=== PATIENT | male | born 1960 | race Caucasian/White ===

== ENCOUNTER 2016-10-01 08:38 | Inpatient (IN) | payer OTHER ==
--- NOTE | 2016-09-30 13:46 | CONS ---
DATE OF ADMISSION: 10/01/2016 DATE OF CONSULTATION: 09/29/2016 TYPE OF CONSULTATION: Preoperative medical consultation. Scheduled date of surgery 10/01/2016 by Lindsay Hernández. Dear Dr. Hernández: Thank you very much for allowing me to participate in the care of Mr. Cifuentes. He is an 55-year-old male with osteoarthritis who is being brought in electively for left total hip ar throplasty. PAST MEDICAL HISTORY: 1. Migraine syndrome. 2. Prostate cancer. 3. Allergic rhinitis. 4. Usual childhood diseases. 5. Status post robotic prostatectomy 06/2016 at [facility]. 6. 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 7. Status post right 4th digit surgery. 8. Status post T and A. ALLERGIES: HE HAS NO KNOWN MEDICAL ALLERGIES. MEDICATIONS: Multiple vitamins once a day. Ibuprofen p.r.n. HABITS: He is a nonsmoker. He has a rare alcohol less than once every 2 weeks. One cup of coffee per day. No recreational drugs. SOCIAL HISTORY: He was born in [place] and raised there until the age 2 and then raised in [facility]. He has a bachelor's degree without experience. 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 He has been for 36 years and lives with his spouse. FAMILY HISTORY: Negative for coronary artery disease, negative for diabetes, negative for hypertens ion, negative for stroke. Negative for asthma, positive for migraine, negative for glaucoma, negati ve for colon cancer, positive for breast cancer, negative for anesthesia reactions. REVIEW OF SYSTEMS: HEAD AND EYES: Fully negative. ENT: Negative. RESPIRATORY: Negative. CARDIAC: Negative. GASTROINTESTINAL: Negative. HEMATOLOGIC: Negative. UROLOGIC: Negative, although he does have postoperative urinary incontinence. MUSCULOSKELETAL: Notable for the hip pain. NEUROLOGIC: Negative. GENERAL: Without note. PHYSICAL EXAMINATION: VITAL SIGNS: At the time of physical exam, he has a height of 5 feet 7 1/2 inches, weight 216.2, bl ood pressure is 124/70, pulse 76, temperature is 97.7. HEENT: NC/AT; PERRL, EOMI, anicteric. Fundi were without note; tympanic membranes are without note ; oropharynx demonstrates no lesions. NECK: Supple. There is a midline trachea. There is no thyromegaly; pulses are 2+ without bruits. RESPIRATORY: Clear to auscultation and percussion. CARDIAC: Demonstrates no JVD, a regular rate and rhythm without rubs, murmurs or gallops. ABDOMEN: Soft, nontender, active bowel sounds, no hepatosplenomegaly, no CVA tenderness, no hernias and no bruits. EXTREMITIES: Demonstrate no clubbing, cyanosis or edema. NEUROLOGIC: Nonfocal. PRESENT ILLNESS: Sodium 141, potassium 4.8, chloride 101, bicarbonate 27, BUN 11, creatinine 0.7, r andom blood sugar 110. White count 9, hemoglobin 15.1, hematocrit 44.3, platelet count 319, pro anum e 11.7 with an INR of 1.01. PTT is 26 seconds. Urinalysis 1.020, pH is 5, dipsticks negative. EKG demonstrates sinus rhythm at 88, intervals 0.16, 0.09 0.41, an axis of 0 degrees, normal morphology . ASSESSMENT AND PLAN: Preoperative medical consultation prior to elective hip arthroplasty. At thi s time, I find Mr. Cifuentes to be an acceptable surgical candidate and concur with your plans to proc eed with surgery. He is at average surgical risk as compared to his age-matched peers and should do well using all standard and routine anesthesia precautions. Using the modified [place] for his cla ssification, he is at average risk. As such, the benefits of the proposed surgery outweigh the risk s and he should proceed with surgery. Dictated By: NEVILLE NAVARRO MD, JR/WALTER Conf#: [id number] DID#: [id number] CC: LIZBETH HERNÁNDEZ MD;*EndCC*
[~2016-10-01] VITALS: Ht 172.7 cm; Wt 96.8 kg
[2016-10-01] VITALS (21 sets, daily range): BP systolic 105–146; BP diastolic 55–93; PULSE 70–88; RESP 11–20; Ht 172.7 cm; Wt 96.8 kg
[~2016-10-01 08:38] MED LIST: BUPIVACAINE 0.5% (SDV) 30 ML, morphine SULFATE (PF) 8 MG, EPINEPHrine 0.3 MG, KETOROLAC... IRR SCH; CEFAZOLIN 2 GM/50 ML (PMX) 50 ML IVPB ONE; DEXAMETHASONE 1 MG TAB PO ONE; GABAPENTIN 300 MG CAP PO ONE; TRANEXAMIC ACID 1,000 MG in SOD CHLORIDE 0.9% 100 ML IVPB ONE; oxyCODONE (CR) 10 MG TAB [oxyCONTIN] PO ONE; traMADol 50 MG TAB PO ONE
[2016-10-01] MEDS ORDERED: DEXAMETHASONE 1 MG TAB PO ONE (10:00)
[2016-10-01] MEDS ORDERED: GABAPENTIN 300 MG CAP PO ONE (10:00)
[2016-10-01] MEDS ORDERED: traMADol 50 MG TAB PO ONE (10:00)
[2016-10-01] MEDS ORDERED: TRANEXAMIC ACID 1,000 MG in SOD CHLORIDE 0.9% 100 ML IVPB ONE (10:00)
[2016-10-01] MEDS ORDERED: BUPIVACAINE 0.5% (SDV) 30 ML, morphine SULFATE (PF) 8 MG, EPINEPHrine 0.3 MG, KETOROLAC... IRR SCH ×7 (10:00)
[2016-10-01] MEDS ORDERED: CEFAZOLIN 2 GM/50 ML (PMX) 50 ML IVPB SCH (10:00)
[2016-10-01] MEDS ORDERED: oxyCODONE (CR) 10 MG TAB [oxyCONTIN] PO ONE (10:00)
--- NOTE | 2016-10-01 11:30 | HPN ---
Date/Time of Note Date/Time of Note DATE: 10/01/16 TIME: 11:30 Interval H&P Admission Note Pt. seen H&P reviewed: No system changes LIZBETH PHILLIPS MD Oct 01, 2016 11:30
[2016-10-01] MEDS ORDERED: BUPIVACAINE 0.5%/EPI (SDV) 30 ML INJ ONE (11:48)
[2016-10-01] MEDS ORDERED: POLYMYXIN/BACITRACIN 1L IRRIG ONE (11:49)
[2016-10-01] MEDS ORDERED: CA CHLORIDE 10% 10 ML SYRINGE ONE (11:49)
[2016-10-01] MEDS ORDERED: FENTAnyl 50 MCG/ML VIAL ONE (12:01)
[2016-10-01] MEDS ORDERED: MIDAZOLAM 1 MG/ML 2 ML INJ ONE ×2 (12:01→12:27)
[2016-10-01] MEDS ORDERED: morphine SULFATE/PF (10 MG/10 ML) INJ ONE (12:01)
[2016-10-01] MEDS ORDERED: MEPERIDINE 25 MG INJ IV PRN (13:00)
[2016-10-01] MEDS ORDERED: ONDANSETRON 4 MG INJ IV PRN ×2 (13:00→15:00)
[2016-10-01] MEDS ORDERED: HYDROmorphONE (0.2 MG/ML) 10ML SYG IV PRN ×2 (13:00)
[2016-10-01] MEDS ORDERED: DIPHENHYDRAMINE 50 MG INJ IV PRN ×2 (13:00→15:00)
[2016-10-01] MEDS ORDERED: FENTAnyl 50 MCG/ML VIAL IV PRN (13:00)
[2016-10-01] MEDS ORDERED: NALOXONE (0.4 MG/ML) INJ IV PRN (13:00)
[2016-10-01] MEDS ORDERED: METOCLOPRAMIDE 10 MG INJ IV PRN (13:00)
[2016-10-01] MEDS ORDERED: THROMBIN 5000 UNIT VIAL ONE (13:05)
[2016-10-01] MEDS ORDERED: PROPOFOL 20 ML ONE (14:42)
[2016-10-01] MEDS ORDERED: ETOMIDATE 20 MG INJ ONE (14:42)
[2016-10-01] MEDS ORDERED: LIDOCAINE 2% (SDV) 5 ML INJ ONE (14:42)
[2016-10-01] MEDS ORDERED: ONDANSETRON 4 MG INJ ONE (14:44)
[2016-10-01] MEDS ORDERED: ROCURONIUM 50 MG INJ ONE (14:44)
[2016-10-01] MEDS ORDERED: CEFAZOLIN 1 GM INJ ONE (14:49)
[2016-10-01] MEDS ORDERED: morphine 2 MG INJ IV PRN (15:00)
[2016-10-01] MEDS ORDERED: KETOROLAC 15 MG INJ IV PRN (15:00)
[2016-10-01] MEDS ORDERED: BETHANECHOL 25 MG TAB PO PRN (15:00)
[2016-10-01] MEDS ORDERED: OXYCODONE/ACETAMINOPHEN (5/325) TAB PO PRN ×2 (15:00)
[2016-10-01] MEDS ORDERED: TRANEXAMIC ACID 1,000 MG in SOD CHLORIDE 0.9% 100 ML IV ONE (15:00)
[2016-10-01] MEDS ORDERED: MAGNESIUM HYDROXIDE 30ML CUP PO PRN (15:00)
[2016-10-01] MEDS ORDERED: morphine 4 MG/ML VIAL IV PRN (15:00)
[2016-10-01] MEDS ORDERED: ZOLPIDEM 5 MG TAB PO PRN (15:00)
[2016-10-01] MEDS ORDERED: ACETAMINOPHEN 500 MG TAB PO PRN (15:00)
--- NOTE | 2016-10-01 15:04 | PDOCDIS ---
Discharge Instructions DIAGNOSIS Discharge Diagnosis: hip Arthritis CONDITION Patient Condition: Good HOME CARE INSTRUCTIONS: Diet Instructions: Regular ACTIVITY: Activity Restrictions: Slowly Increase Activity Keep Limb Elevated Bathing Restrictions: Shower FOLLOW UP/APPOINTMENTS Appointments Two weeks SCHOOL/WORK RELEASE May return to School/Work with: With Restrictions School/Work Release Comment: No hip extension for six weeks LIZBETH PHILLIPS MD Oct 01, 2016 15:04
--- NOTE | 2016-10-01 15:11 | OPR ---
DATE OF OPERATION: 10/01/2016 PREOPERATIVE DIAGNOSIS: Degenerative osteoarthritis primary of the right hip. POSTOPERATIVE DIAGNOSIS: Right hip primary degenerative osteoarthritis. OPERATION PERFORMED: Right total hip arthroplasty. ATTENDING SURGEON: Lizbeth Hernández MD INDUCTION MACHINE SETTER: Rafiq Leiva MD Drawing Machine Operator surgeon, Rafiq Leiva MD, was asked to be present at my request as a result of the compl exity associated with the procedure, including positioning of the extremity, manipulation and protec tion of the neurovascular structures. In my opinion, the assistance offered by a surgical scrub regina is insufficient and Dr. Leiva therefore be compensated for his time. PROCEDURE IN DETAIL: Following the administration of general endotracheal anesthesia, the patient w as placed in the supine position. A Tinoco catheter was then placed under sterile guidance. Sterile prep and drape of the right lower extremity was then undertaken. Radiographs were obtained to conf irm size and pelvic obliquity as well as positioning for postoperative limb length determination. A lateral incision was then made, exposing the tensor. The tensor was incised, retracted laterally. The fascia was retracted medially. The anterior capsule was identified. Capsulectomy was then pe rformed. Femoral head cut was then made in the appropriate degree of version and inclination follow ed by removal of the head. Severe arthritic changes were noted. The acetabulum was then cleared of soft tissue. Capsulectomy and labrectomy were completed. The ac etabulum was then reamed up to the 55 mm size and a 56 mm [place] cup was then implanted with good position. A 25 mm screw was used for fixation. The femoral shaft was then entered and reamed up to a 9 mm size. Confirmatory radiographs obtained revealed a 4 mm limb length discrepancy with good position of the component. The cup was noted to b e 45 degrees and 22 degrees. The actual components were implanted. Specifically, a +1 ceramic head with a 9 mm [place] shaft. Th e hip was then taken through range of motion with solid fixation and no instability. The joint was thoroughly irrigated, closed in layers, followed by application of a Prineo dressing. The patient w as then extubated and transported to recovery in stable condition. Estimated blood loss for this pr ocedure was 300 mL. Postoperative x-rays will be obtained in the recovery room. Dictated By: LIZBETH MATHEW/NTS Conf#: [id number] [facility]#: [id number]
[2016-10-01 15:39] LABS: ADD UMIC YES; URINE BILIRUBIN (Dip) NEGATIVE (NEGATIVE); URINE BLOOD (Dip) NEGATIVE (NEGATIVE); URINE COLOR LT. YELLOW (YELLOW); URINE GLUCOSE (Dip) NEGATIVE (NEGATIVE); URINE KETONES (Dip) NEGATIVE (NEGATIVE); URINE LEUKOCYTE ESTERASE (Dip) NEGATIVE (NEGATIVE); URINE NITRITE (Dip) NEGATIVE (NEGATIVE); URINE TOTAL PROTEIN (Dip) TRACE (NEGATIVE); URINE UROBILINOGEN (Dip) 0.2 E.U./dL (0.1-1.0)
[2016-10-01] MEDS: CEFAZOLIN 1 GM/50 ML (PMX) 50 ML IVPB SCH ×2 (15:42→22:20)
[2016-10-01] MEDS: LACTATED RINGER'S 1,000 ML IV SCH ×2 (15:44→23:09)
[2016-10-01 15:47] LABS: ADD SCAN DIFF NO
[2016-10-01 15:50] LABS: BASOPHIL # 0.1 10^3/ul (0.0-0.1); BASOPHILS % 0.7 % (0.0-2.0); EOSINOPHILS # 0.1 10^3/ul (0.0-0.5); EOSINOPHILS % 0.7 % (0.0-7.0); HEMATOCRIT 42.6 % (42.0-52.0); LYMPHOCYTES # 1.1 10^3/ul (0.8-2.9); LYMPHOCYTES % 10.1 % (15.0-51.0); MEAN CORPUSCULAR HEMOGLOBIN 29.8 pg (29.0-33.0); MEAN CORPUSCULAR HGB CONC 32.9 g/dl (32.0-37.0); MEAN CORPUSCULAR VOLUME 90.6 fl (82.0-101.0); MEAN PLATELET VOLUME 9.5 fl (7.4-10.4); MONOCYTE # 0.5 10^3/ul (0.3-0.9); NEUTROPHIL # 9.3 10^3/ul (1.6-7.5); NEUTROPHILS % 82.9 % (39.0-77.0); PLATELET COUNT 277 10^3/UL (140-415); RED CELL DISTRIBUTION WIDTH 13.8 % (11.5-14.5); WHITE BLOOD COUNT 11.2 10^3/ul (4.8-10.8)
[2016-10-01 16:03] LABS: URINE RBCS 0-2 /HPF (0)
[2016-10-01 16:04] LABS: BACTERIA,URINE MODERATE; SQUAMOUS EPITHELIAL CELL,UR MODERATE
--- NOTE | 2016-10-01 17:57 | RADRPT ---
PROCEDURE: Intraoperative imaging of the right hip with fluoroscopy. CLINICAL INDICATION: Right hip pain. Intraoperative. TECHNIQUE: 5 images of the right hip were obtained in the operating room with an image intensifier . No radiologist was in attendance. 0.9 minutes of fluoroscopy time was used. COMPARISON: No prior study is available for comparison. FINDINGS: Images demonstrate placement of a total right hip arthroplasty. IMPRESSION: 1. Satisfactory intraoperative imaging of the right hip. RPTAT: QQ .Chalo Sharpe MD, MD Date Time Electronically viewed and signed by .Chalo Sharpe MD, MD on 10/01/2016 17:57 .R/
--- NOTE | 2016-10-01 17:58 | RADRPT ---
PROCEDURE: XR Pelvis. CLINICAL INDICATION: Pelvic pain. Postop. TECHNIQUE: Single frontal view. COMPARISON: None. FINDINGS: There is a right hip total arthroplasty. This appears satisfactory with no fracture, dislocation or loosening. There is no lytic lesion. Gas is present in the soft tissues overlying the right hip. There are moderate degenerative changes of the left hip with joint space narrowing and osteophytes. A Tinoco catheter is present in the bladder. IMPRESSION: 1. Satisfactory postoperative appearance of the right hip. 2. Moderate degenerative changes of the left hip. RPTAT: QQ .Chalo Sharpe MD, Date Time Electronically viewed and signed by .Chalo Sharpe MD, MD on 10/01/2016 17:58 .R/
[2016-10-01] MEDS: DEXAMETHASONE 2 MG TAB PO SCH ×2 (18:02→23:08)
[2016-10-01] MEDS ORDERED: GABAPENTIN 300 MG CAP PO SCH (21:00)
[2016-10-01] MEDS: SENNA/DOCUSATE NA (8.6MG/50MG) TAB PO SCH (21:08)
[2016-10-02 04:49] LABS: ADD SCAN DIFF NO
[2016-10-02 05:03] LABS: BASOPHILS % 0.2 % (0.0-2.0); HEMATOCRIT 32.4 % (42.0-52.0); HEMOGLOBIN 10.7 g/dl (14.0-18.0); LYMPHOCYTES % 7.4 % (15.0-51.0); MEAN CORPUSCULAR VOLUME 90.8 fl (82.0-101.0); MONOCYTE # 0.9 10^3/ul (0.3-0.9); MONOCYTES % 6.8 % (0.0-11.0); NEUTROPHIL # 10.9 10^3/ul (1.6-7.5); PLATELET COUNT 232 10^3/UL (140-415); RED BLOOD COUNT 3.57 10^6/ul (4.70-6.10); RED CELL DISTRIBUTION WIDTH 13.6 % (11.5-14.5); WHITE BLOOD COUNT 12.9 10^3/ul (4.8-10.8)
[2016-10-02] MEDS: CEFAZOLIN 1 GM/50 ML (PMX) 50 ML IVPB SCH (06:06)
[2016-10-02] MEDS: DEXAMETHASONE 2 MG TAB PO SCH ×2 (06:07→11:21)
[2016-10-02 06:12] VITALS: BP 124/71; PULSE 75; RESP 18
--- NOTE | 2016-10-02 06:12 | PN ---
Date/Time of Note Date/Time of Note DATE: 10/02/16 TIME: 06:11 24 hour Interval Summary Patient is awake and alert. He has no pain. Physical examination his wound is clean and dry. He is neurologically intact. There are no signs of DVT. Impression: Status post total hip replacement Plan: He will begin physical therapy this morning discharged 1 independently ambulatory. He will follow-up in 2 weeks. Physical Exam Vital Signs Date Time Temp Pulse Resp B/P Pulse Ox O2 Delivery O2 Flow Rate FiO2 10/01/16 23:33 98.1 75 20 107/58 94 10/01/16 21:10 Nasal Cannula 3.0 Intake and Output 10/01/16 10/01/16 10/02/16 15:00 23:00 07:00 Intake Total 2200 ml 1950 ml Output Total 200 ml 750 ml 1050 ml Balance -200 ml 1450 ml 900 ml VTE Prophylaxis VTE Prophylaxis Intervention: anti-embolic stocking Lines/Catheters IV Catheter Type: Saline Lock Tinoco in Place: No Results Result Diagram: 10/02/16 0433 Results 24hrs Laboratory Tests Test 10/01/16 15:11 10/01/16 15:45 10/02/16 04:33 Urine Color LT. YELLOW Urine Clarity HAZY Urine pH 5.0 Urine Specific [place] >=1.030 H Urine Ketones NEGATIVE Urine Nitrite NEGATIVE Urine Bilirubin NEGATIVE Urine Urobilinogen 0.2 E.U./dL Urine Leukocyte Esterase NEGATIVE Urine Microscopic RBC 0-2 Urine Microscopic WBC 0-2 Urine Squamous Epithelial Cells MODERATE Urine Bacteria MODERATE Urine Hyaline Casts MANY Urine Hemoglobin NEGATIVE Urine Glucose NEGATIVE Urine Total Protein TRACE White Blood Count 11.2 H 12.9 H Red Blood Count 4.70 3.57 #L Hemoglobin 14.0 10.7 #L Hematocrit 42.6 32.4 #L Mean Corpuscular Volume 90.6 90.8 Mean Corpuscular Hemoglobin 29.8 30.0 Mean Corpuscular Hemoglobin Concent 32.9 33.0 Red Cell Distribution Width 13.8 13.6 Platelet Count 277 232 Mean Platelet Volume 9.5 10.0 Neutrophils % 82.9 H 85.0 H Lymphocytes % 10.1 L 7.4 L Monocytes % 4.0 6.8 Eosinophils % 0.7 0.0 Basophils % 0.7 0.2 Nucleated Red Blood Cells % 0.0 0.0 Neutrophils # 9.3 H 10.9 H Lymphocytes # 1.1 1.0 Monocytes # 0.5 0.9 Eosinophils # 0.1 0.0 Basophils # 0.1 0.0 Nucleated Red Blood Cells # 0.0 0.0 LIZBETH PHILLIPS MD Oct 02, 2016 06:12
--- NOTE | 2016-10-02 06:13 | DS ---
Date/Time of Note Date/Time of Note DATE: 10/02/16 TIME: 06:12 Discharge Summary Admission/Discharge Info Admit Date/Time Oct 01, 2016 at 08:38 Discharge Date/Time October 02, 2016 after cleared by physical therapy. Final Diagnosis Right hip osteoarthritis Patient Condition: Good Procedures Right total hip replacement Hx of Present Illness Chronic pain and stiffness in the right hip Hospital Course Patient underwent an uncomplicated total hip replacement. Discharge following physical therapy the next day. Pending Labs Laboratory Tests Test 10/01/16 15:11 10/01/16 15:45 10/02/16 04:33 Urine Color LT. YELLOW (YELLOW) Urine Clarity HAZY (CLEAR) Urine pH 5.0 (5.0-9.0) Urine Specific [place] >=1.030 (1.003-1.030) Urine Ketones NEGATIVE (NEGATIVE) Urine Nitrite NEGATIVE (NEGATIVE) Urine Bilirubin NEGATIVE (NEGATIVE) Urine Urobilinogen 0.2 E.U./dL (0.1-1.0) Urine Leukocyte Esterase NEGATIVE (NEGATIVE) Urine Microscopic RBC 0-2/HPF (0) Urine Microscopic WBC 0-2/HPF (0) Urine Squamous Epithelial Cells MODERATE Urine Bacteria MODERATE Urine Hyaline Casts MANY Urine Hemoglobin NEGATIVE (NEGATIVE) Urine Glucose NEGATIVE% (NEGATIVE) Urine Total Protein TRACE (NEGATIVE) White Blood Count 11.210^3/ul (4.8-10.8) 12.910^3/ul (4.8-10.8) Red Blood Count 4.7010^6/ul (4.70-6.10) 3.5710^6/ul (4.70-6.10) Hemoglobin 14.0g/dl (14.0-18.0) 10.7g/dl (14.0-18.0) Hematocrit 42.6% (42.0-52.0) 32.4% (42.0-52.0) Mean Corpuscular Volume 90.6fl (82.0-101.0) 90.8fl (82.0-101.0) Mean Corpuscular Hemoglobin 29.8pg (29.0-33.0) 30.0pg (29.0-33.0) Mean Corpuscular Hemoglobin Concent 32.9g/dl (32.0-37.0) 33.0g/dl (32.0-37.0) Red Cell Distribution Width 13.8% (11.5-14.5) 13.6% (11.5-14.5) Platelet Count 21270^3/UL (140-415) 04370^3/UL (140-415) Mean Platelet Volume 9.5fl (7.4-10.4) 10.0fl (7.4-10.4) Neutrophils % 82.9% (39.0-77.0) 85.0% (39.0-77.0) Lymphocytes % 10.1% (15.0-51.0) 7.4% (15.0-51.0) Monocytes % 4.0% (0.0-11.0) 6.8% (0.0-11.0) Eosinophils % 0.7% (0.0-7.0) 0.0% (0.0-7.0) Basophils % 0.7% (0.0-2.0) 0.2% (0.0-2.0) Nucleated Red Blood Cells % 0.0/100WBC (0.0-0.0) 0.0/100WBC (0.0-0.0) Neutrophils # 9.310^3/ul (1.6-7.5) 10.910^3/ul (1.6-7.5) Lymphocytes # 1.110^3/ul (0.8-2.9) 1.010^3/ul (0.8-2.9) Monocytes # 0.510^3/ul (0.3-0.9) 0.910^3/ul (0.3-0.9) Eosinophils # 0.110^3/ul (0.0-0.5) 0.010^3/ul (0.0-0.5) Basophils # 0.110^3/ul (0.0-0.1) 0.010^3/ul (0.0-0.1) Nucleated Red Blood Cells # 0.010^3/ul (0.0-0.0) 0.010^3/ul (0.0-0.0) LIZBETH PHILLIPS MD Oct 02, 2016 06:13
[2016-10-02 07:48] VITALS: BP 93/53; RESP 18
[2016-10-02] MEDS: SENNA/DOCUSATE NA (8.6MG/50MG) TAB PO SCH (08:20)
[2016-10-02] MEDS ORDERED: ASPIRIN 81 MG TAB PO SCH (09:00)
[2016-10-02] MEDS: LACTATED RINGER'S 1,000 ML IV SCH (10:26)
== END 2016-10-02 13:30 | disposition home or self-care (01) | DRG 470 ==
LOC: REC 08:38 → MS1 16:54
PROVIDERS: ADMIT Orthopaedic Surgery; ATTEND Orthopaedic Surgery
PROC: 0SR904A Replacement of Right Hip Joint with Ceramic on Polyethylene Synthetic Substitute, Uncemented, Open Approach (ICD-10-PCS; principal; 2016-10-01 12:00)
DX: M16.11 Unilateral primary osteoarthritis, right hip (principal); Z85.46 Personal history of malignant neoplasm of prostate
CPT/HCPCS: 72170; 73530; 81001; 81003; 85025; 86999; 87086; 97110; 97116; 97163; 97530; Z7610; C1713; C1776; J0171; J0690; J0735; J1885; J2250; J2274; J2405; J3010; J3370; J7120